=== PATIENT | male | born 1985 | race Two or more races ===

== ENCOUNTER 2019-09-27 13:19 | Emergency (ER) | payer BC, OTHER ==
--- NOTE | 2019-09-27 13:33 | EDM.PDOC ---
ED HPI GENERAL MEDICAL PROBLEM - General Chief Complaint: ENT Problem Stated Complaint: SORE THROAT 2 DAYS Time Seen by Provider: 09/27/19 13:33 Source of Information: Reports: Patient History Limitations: Reports: No Limitations - History of Present Illness INITIAL COMMENTS - FREE TEXT/NARRATIVE: HISTORY AND PHYSICAL: History of present illness: Patient is a 34-year-old male presents to [facility] ED with complaint of sore throat x 2 days. He states it is difficult to eat due to the pain. He denies fevers, chills, nausea ,vomiting, trismus. He states he has had a mild cough. Review of systems: As per history of present illness and below otherwise all systems reviewed and negative. Past medical history: As per history of present illness and as reviewed below otherwise noncontributory. Surgical history: As per history of present illness and as reviewed below otherwise noncontributory. Social history: No reported history of drug or alcohol abuse. Family history: As per history of present illness and as reviewed below otherwise noncontributory. Physical exam: General: Patient sitting comfortably in no acute distress and nontoxic appearing HEENT: Tonsils not visualized. OP is erythematous without exudate. Atraumatic, normocephalic, pupils reactive, negative for conjunctival pallor or scleral icterus, mucous membranes moist, throat clear, neck supple, nontender, trachea midline. No meningeal signs. Lungs: Clear to auscultation, breath sounds equal bilaterally, chest nontender. Heart: S1S2, regular, negative for clicks, rubs, or overt murmur. Abdomen: Soft, nondistended, nontender. Negative for masses or hepatosplenomegaly. Negative for costovertebral tenderness. No rigidity, rebound , guarding. Pelvis: Stable nontender. Genitourinary: Deferred. Rectal: Deferred. Extremities: Atraumatic, negative for cords or calf pain. Neurovascular unremarkable. Neuro: Awake, alert, oriented. Cranial nerves II through XII unremarkable. Cerebellum unremarkable. Motor and sensory unremarkable throughout. Exam nonfocal. Notes: Diagnostics: rapid strep Therapeutics: none Prescriptions: Amoxicillin Impression: Acute pharyngitis Plan: Take antibiotic as instructed Alternate Tylenol Motrin as needed Follow-up with primary care provider Return to ED as needed as discussed Definitive disposition and diagnosis as appropriate pending reevaluation and review of above. throat Pain Score (Numeric/FACES): 7 - Related Data Allergies Allergy/AdvReac Type Severity Reaction Status Date / Time No Known Allergies Allergy Verified 06/06/19 16:57 MDT Home Meds: Home Meds Amoxicillin 500 mg PO BID 10 Days #20 tab 09/27/19 [Rx] Past Medical History Musculoskeletal History: Reports: Other (See Below) Other Musculoskeletal History: surgery right hand Social & Family History - Caffeine Use Caffeine Use: Reports: Soda ED ROS ENT - Review of Systems Review Of Systems: Comprehensive ROS is negative, except as noted in HPI. ED EXAM, ENT - Physical Exam Exam: See Below (see dictation) Course - Vital Signs Last Recorded V/S: Last Vital Signs Temp 97.9 F 09/27/19 13:27 Pulse 91 09/27/19 13:27 Resp 16 09/27/19 13:27 BP 128/85 09/27/19 13:27 Pulse Ox 97 09/27/19 13:27 - Orders/Labs/Meds Orders: Active Orders 24 hr Category Date Time Status CULTURE STREP A CONFIRMATION [RM] Stat Lab 09/27/19 13:30 Results STREP SCRN A RAPID W CULT CONF [RM] Stat Lab 09/27/19 13:28 Ordered Departure - Departure Time of Disposition: 13:54 Disposition: Home, Self-Care 01 Condition: Good Clinical Impression: Acute pharyngitis - Discharge Information Prescriptions: Amoxicillin 500 mg PO BID 10 Days #20 tab Referrals: PCP,None [Primary Care Provider] - Forms: ED Department Discharge Additional Instructions: The following information is given to patients seen in the emergency department who are being discharged to home. This information is to outline your options for follow-up care. We provide all patients seen in our emergency department with a follow-up referral. The need for follow-up, as well as the timing and circumstances, are variable depending upon the specifics of your emergency department visit. If you don't have a primary care physician on staff, we will provide you with a referral. We always advise you to contact your personal physician following an emergency department visit to inform them of the circumstance of the visit and for follow-up with them and/or the need for any referrals to a consulting specialist. The emergency department will also refer you to a specialist when appropriate. This referral assures that you have the opportunity for follow-up care with a specialist. All of these measure are taken in an effort to provide you with optimal care, which includes your follow-up. Under all circumstances we always encourage you to contact your private physician who remains a resource for coordinating your care. When calling for follow-up care, please make the office aware that this follow-up is from your recent emergency room visit. If for any reason you are refused follow-up, please contact the [facility] Emergency Department at and asked to speak to the emergency department charge nurse. [facility] [address] [place] [id number] [address] [address] Take antibiotic as instructed Alternate Tylenol Motrin as needed Follow-up with primary care provider Return to ED as needed as discussed Sepsis Event Note - Evaluation Sepsis Screening Result: No Definite Risk - Focused Exam Vital Signs: Vital Signs Temp Pulse Resp BP Pulse Ox 09/27/19 13:27 97.9 F 91 16 128/85 97 Date Exam was Performed: 09/27/19 Time Exam was Performed: 13:53 - My Orders Last 24 Hours: My Active Orders 09/27/19 13:28 STREP SCRN A RAPID W CULT CONF [RM] Stat 09/27/19 13:30 CULTURE STREP A CONFIRMATION [RM] Stat - Assessment/Plan Last 24 Hours: My Active Orders 09/27/19 13:28 STREP SCRN A RAPID W CULT CONF [RM] Stat 09/27/19 13:30 CULTURE STREP A CONFIRMATION [RM] Stat
== END 2019-09-27 14:11 | disposition home or self-care (01) ==
LOC: MW.ED 13:19
DX: J02.9 Acute pharyngitis, unspecified (principal)
CPT/HCPCS: 87081; 87880-QW; 99283